=== PATIENT | female | born 1990 | race Caucasian/White ===

== ENCOUNTER 2019-08-24 18:29 | Emergency (ER) | payer OTHER ==
[~2019-08-24] VITALS: Ht 152.4 cm; Wt 67.7 kg
--- NOTE | 2019-08-24 18:33 | NUR ---
L&D aware of pt. Will come down for FHT
[2019-08-24] MEDS ORDERED: DIPHENHYDRAMINE 50 MG/ML, 1ML ONE (18:46)
[2019-08-24] MEDS ORDERED: FAMOTIDINE 20 MG/2 ML ONE (18:46)
[2019-08-24] MEDS ORDERED: methylPREDNISolone SOD SUCC 125 MG/2 ML ONE (18:46)
[2019-08-24] MEDS ORDERED: FAMOTIDINE 20 MG/2 ML IVPush ONE (19:00)
[2019-08-24] MEDS ORDERED: DIPHENHYDRAMINE 50 MG/ML, 1ML IVPush ONE (19:00)
[2019-08-24] MEDS ORDERED: PLEASE ENTER ALLERGIES MC SCH (19:00)
[2019-08-24] MEDS ORDERED: methylPREDNISolone SOD SUCC 125 MG/2 ML IVPush ONE (19:00)
[2019-08-24] MEDS ORDERED: SODIUM CHLORIDE FLUSH 10ML SYR IVF ONE (19:00)
--- NOTE | 2019-08-24 19:01 | NUR ---
REPORT FROM JULIANO ASSUMED CARE OF PT AT THIS TIME, PT ON ALL MONITORS IN NAD VSS, L AND D SAW PT
--- NOTE | 2019-08-24 19:52 | NUR ---
PT AMBULATED TO BATHROOM WITHOUT DIFFICULTY AT THIS TIME
--- NOTE | 2019-08-24 20:13 | NUR ---
pt remains in nad
[2019-08-24 20:50] VITALS: BP 120/70
--- NOTE | 2019-08-24 20:51 | NUR ---
Patient/Caregiver given discharge instructions and they have confirmed that they understand the instructions. Patient ambulatory with steady gait.
== END 2019-08-24 20:52 | disposition home or self-care (01) ==
LOC: ED 20:06
DX: O9A.213 Injury, poisoning and certain other consequences of external causes complicating pregnancy, third trimester (principal); T78.1XXA Other adverse food reactions, not elsewhere classified, initial encounter; J98.01 Acute bronchospasm; X58.XXXA Exposure to other specified factors, initial encounter; Z3A.31 31 weeks gestation of pregnancy
CPT/HCPCS: 96374; 96375; 99283; J1200; J2930; J3490

== ENCOUNTER 2019-09-11 21:14 | Outpatient (CLI) | payer OTHER ==
[~2019-09-11] VITALS: Ht 152.4 cm; Wt 74.5 kg
[2019-09-11 22:14] LABS: MICROSCOPIC NOT IND
== END 2019-09-11 22:30 | disposition home or self-care (01) ==
LOC: LDOP 21:14
PROVIDERS: ATTEND Obstetrics & Gynecology Maternal & Fetal Medicine
DX: O46.93 Antepartum hemorrhage, unspecified, third trimester (principal); Z3A.34 34 weeks gestation of pregnancy
CPT/HCPCS: 59025; 81003; 87086; 99211; G0463

== ENCOUNTER 2019-10-13 00:20 | Outpatient (CLI) | payer OTHER ==
[~2019-10-13] VITALS: Ht 152.4 cm; Wt 75.4 kg
[2019-10-13] MEDS ORDERED: ACETAMINOPHEN 500 MG TABLET ONE (03:03)
== END 2019-10-13 03:45 | disposition home or self-care (01) ==
LOC: LDOP 00:20
PROVIDERS: ATTEND Obstetrics & Gynecology Maternal & Fetal Medicine
DX: O26.893 Other specified pregnancy related conditions, third trimester (principal); R10.9 Unspecified abdominal pain; Z3A.38 38 weeks gestation of pregnancy
CPT/HCPCS: 59025; 99211; G0463

== ENCOUNTER 2019-10-17 16:25 | Inpatient (IN) | payer BC, OTHER ==
[~2019-10-17] VITALS: Ht 152.4 cm; Wt 79.2 kg
[2019-10-17] MEDS: D5%-LACTATED RINGERS 1,000 ML IV SCH (16:31)
[2019-10-17] MEDS ORDERED: OXYTOCIN 30U/ 0.9% NaCL 500ML 500 ML IV ONE (16:31)
[2019-10-17] MEDS: LACTATED RINGERS 1,000 ML IV SCH ×3 (16:46→17:37)
[2019-10-17 16:58] LABS: MEAN CORPUSCULAR HEMOGLOBIN 27.2 pg (27.0-34.8); MEAN CORPUSCULAR HGB CONC 33.2 g/dL (32.4-35.8); MEAN CORPUSCULAR VOLUME 81.9 fL (80-100); MEAN PLATELET VOLUME 9.6 fL (7.4-10.4); PLATELET COUNT 233 x10^3/uL (130-400); RED BLOOD COUNT 4.43 x10^6/uL (3.82-5.3)
[2019-10-17] MEDS ORDERED: FENTANYL/BUPIV./NS/PF 250 ML EPIDCONT ONE (17:00)
[2019-10-17] MEDS ORDERED: FENTANYL PF 500 MCG, BUPIVACAINE/PF 0.5%, 30ML 62.5 ML in SODIUM CHLORIDE 0.9% 177.5 ML EPIDCONT SCH (17:00)
[2019-10-17] MEDS ORDERED: ONDANSETRON 2MG/ML, 2ML IVPush PRN ×2 (17:00→18:00)
[2019-10-17] MEDS ORDERED: TERBUTALINE 1 MG/ML, 1ML IVPush PRN (17:00)
[2019-10-17] MEDS ORDERED: FENTANYL PF 100 MCG/2ML IVPush PRN (17:00)
[2019-10-17] MEDS ORDERED: METOCLOPRAMIDE 5 MG/ML, 2ML IVPush PRN (17:00)
[2019-10-17] MEDS ORDERED: FENTANYL PF 100 MCG/2ML IV PRN (17:00)
[2019-10-17] MEDS ORDERED: TERBUTALINE 1 MG/ML, 1ML SQ PRN (17:00)
[2019-10-17] MEDS ORDERED: SODIUM CITRATE/CITRIC ACID 30 ML UDC PO PRN (17:00)
[2019-10-17 17:02] LABS: MD YES
[2019-10-17] MEDS ORDERED: BUPIVACAINE 0.25% ONE (17:16)
[2019-10-17] MEDS ORDERED: FENTANYL/BUPIV./NS/PF 250 ML EPIDCONT SCH (17:37)
[2019-10-17 17:41] LABS: BAND#(MANUAL) 0.95 x10^3/uL; BANDS%(MANUAL) 7 % (0-7); EOS#(MANUAL) 0.14 x10^3/uL (0.0-0.4); EOS% (MANUAL) 1 % (1-7); LYMPH#(MANUAL) 2.18 x10^3/uL (1-3.4); LYMPHS% (MANUAL) 16 % (22-44); MONOS#(MANUAL) 0.41 x10^3/uL (0.3-2.7); MONOS% (MANUAL) 3 % (2-9); SEG#(MANUAL) 9.93 x10^3/uL (1.8-6.8); SEGS% (MANUAL) 73 % (42-75)
[2019-10-17 17:42] LABS: <PLATELET ESTIMATE> ADEQUATE; <PLT MORPHOLOGY> NORMAL PLT MORPH; <RBC MORPHOLOGY> NORMAL
[2019-10-17] MEDS ORDERED: DIPHENHYDRAMINE 50 MG/ML, 1ML IVPush PRN (18:00)
[2019-10-17] MEDS ORDERED: EPHEDRINE 50 MG/ML, 1ML IVPush PRN (18:00)
[2019-10-17] MEDS ORDERED: LACTATED RINGERS 1,000 ML IVBOLUS PRN (18:00)
[2019-10-17] MEDS ORDERED: NALOXONE 0.4 MG/ML, 1ML IVPush PRN (18:00)
[2019-10-17 19:35] VITALS: BP 139/87
[2019-10-18] MEDS: D5%-LACTATED RINGERS 1,000 ML IV SCH (00:31)
[2019-10-18] MEDS ORDERED: SIMETHICONE 80 MG CHEW TAB PO PRN (01:30)
[2019-10-18] MEDS ORDERED: OXYcodone IR 5MG TABLET PO PRN (01:30)
[2019-10-18] MEDS ORDERED: MISOPROSTOL 200 MCG TABLET PR PRN (01:30)
[2019-10-18] MEDS ORDERED: ACETAMINOPHEN 325 MG TABLET PO PRN (01:30)
[2019-10-18] MEDS: LACTATED RINGERS 1,000 ML IV SCH (01:37)
[2019-10-18] MEDS ORDERED: OXYTOCIN 30U/ 0.9% NaCL 500ML 500 ML ONE (01:55)
[2019-10-18] MEDS: OXYTOCIN 30U/ 0.9% NaCL 500ML 500 ML IV SCH ×3 (01:56→21:30)
[2019-10-18 03:30] VITALS: BP 105/69
[2019-10-18] MEDS: IBUPROFEN 600 MG TABLET PO PRN ×3 (05:50→19:20)
[2019-10-18 07:51] VITALS: BP 98/59
[2019-10-18] MEDS: PRENATAL VIT/IRON/FA 1 EACH TABLET PO SCH (09:22)
[2019-10-18] MEDS: DOCUSATE 100 MG CAPSULE PO PRN ×2 (09:22→19:20)
[2019-10-18 09:29] LABS: MEAN CORPUSCULAR HEMOGLOBIN 27.4 pg (27.0-34.8); MEAN CORPUSCULAR HGB CONC 32.8 g/dL (32.4-35.8); MEAN CORPUSCULAR VOLUME 83.3 fL (80-100); MEAN PLATELET VOLUME 9.8 fL (7.4-10.4); PLATELET COUNT 200 x10^3/uL (130-400); RED BLOOD COUNT 3.73 x10^6/uL (3.82-5.3); RED CELL DISTRIBUTION WIDTH 15.8 % (9.6-15.2)
[2019-10-18 10:16] LABS: MD YES
[2019-10-18 10:18] LABS: BAND#(MANUAL) 1.66 x10^3/uL; BANDS%(MANUAL) 9 % (0-7); LYMPH#(MANUAL) 2.94 x10^3/uL (1-3.4); LYMPHS% (MANUAL) 16 % (22-44); METAMYELOCYTES# (MANUAL) 0.18 x10^3/uL (0-0); METAMYELOCYTES% (MANUAL) 1 % (0-1); MONOS#(MANUAL) 0.92 x10^3/uL (0.3-2.7); MONOS% (MANUAL) 5 % (2-9); SEGS% (MANUAL) 69 % (42-75)
[2019-10-18 10:19] LABS: <PLATELET ESTIMATE> ADEQUATE; <PLT MORPHOLOGY> NORMAL PLT MORPH; ANISOCYTOSIS 1+
[2019-10-18 12:15] VITALS: BP 101/63
[2019-10-18 16:36] VITALS: BP 108/70
[2019-10-18 20:00] VITALS: BP 115/80
[2019-10-19 00:50] VITALS: BP 121/79
[2019-10-19] MEDS: IBUPROFEN 600 MG TABLET PO PRN ×4 (01:37→23:12)
[2019-10-19 04:30] VITALS: BP 107/69
[2019-10-19] MEDS: OXYTOCIN 30U/ 0.9% NaCL 500ML 500 ML IV SCH ×2 (07:30→17:30)
[2019-10-19] MEDS: PRENATAL VIT/IRON/FA 1 EACH TABLET PO SCH (07:38)
[2019-10-19] MEDS: DOCUSATE 100 MG CAPSULE PO PRN ×2 (07:38→20:36)
[2019-10-19 08:05] VITALS: BP 114/74
[2019-10-19] MEDS: OXYcodone/APAP 5/325MG TABLET PO PRN ×2 (09:24→23:15)
[2019-10-19 20:15] VITALS: BP 135/89
[2019-10-20] MEDS: OXYTOCIN 30U/ 0.9% NaCL 500ML 500 ML IV SCH (03:25)
[2019-10-20] MEDS: DOCUSATE 100 MG CAPSULE PO PRN (07:40)
[2019-10-20] MEDS: PRENATAL VIT/IRON/FA 1 EACH TABLET PO SCH (07:40)
[2019-10-20] MEDS: IBUPROFEN 600 MG TABLET PO PRN (07:40)
[2019-10-20 08:02] VITALS: BP 136/84
[2019-10-20] MEDS: OXYcodone/APAP 5/325MG TABLET PO PRN (08:26)
== END 2019-10-20 12:05 | disposition home or self-care (01) | DRG 807 ==
LOC: LDOP 16:25 → LDIP 16:32 → 2NW 10-18 03:26
PROVIDERS: ADMIT Obstetrics & Gynecology Maternal & Fetal Medicine; ATTEND Obstetrics & Gynecology Maternal & Fetal Medicine
PROC: 10E0XZZ Delivery of Products of Conception, External Approach (ICD-10-PCS; principal; 2019-10-18)
PROC: 0KQM0ZZ Repair Perineum Muscle, Open Approach (ICD-10-PCS; 2019-10-18)
PROC: 0W8NXZZ Division of Female Perineum, External Approach (ICD-10-PCS; 2019-10-18)
PROC: 3E0R3BZ Introduction of Anesthetic Agent into Spinal Canal, Percutaneous Approach (ICD-10-PCS; 2019-10-18)
PROC: 00HU33Z Insertion of Infusion Device into Spinal Canal, Percutaneous Approach (ICD-10-PCS; 2019-10-18)
DX: O70.1 Second degree perineal laceration during delivery (principal); Z37.0 Single live birth; Z3A.38 38 weeks gestation of pregnancy; Z88.0 Allergy status to penicillin
CPT/HCPCS: 36415; S0020; 85025; 86592; 86850; 86900; G0378; J3010; J2590; J7050; J7120